=== PATIENT | male | born 1980 | race American Indian/Alaskan Native ===

== ENCOUNTER 2021-01-11 13:40 | Emergency (ER) | payer BC, OTHER ==
[2021-01-11 14:44] LABS: ANION GAP 11.8 mEq/L (7-13); CHLORIDE,CL 100 mmol/L (98-107); SODIUM,NA 139 mmol/L (136-145)
--- NOTE | 2021-01-11 14:48 | CR ---
EXAMINATION: Chest 1V Frontal SEX: Male AGE: 40 years CLINICAL HISTORY: 40-year-old male complaining of CHEST PAIN. INTERPRETATION: 1. Sternotomy wires. External compliance monitor leads. Oxygen cannula. 2. Prominent cardiac silhouette upper limits of normal and unchanged since 30 April 2019 exam. 3. No pulmonary vascular congestion, cephalization of flow, alveolar edema or dependent new pleural fluid accumulation. 4. No new lung mass or hilar lymphadenopathy. 5. No alveolar lobar consolidation or peripheral "groundglass" interstitial infiltrates. 6. No pneumothorax or pneumomediastinum. No free subdiaphragmatic air. CONCLUSION: No acute new cardiopulmonary abnormality since summer 2018.
[2021-01-11] MEDS ORDERED: GI Cocktail Oral Solution 30 ML PO ONE (14:49)
--- NOTE | 2021-01-11 15:31 | EDM.PDOC ---
<AundreaPrema - Last Filed: 01/11/21 15:17> ED HPI GENERAL MEDICAL PROBLEM - General Chief Complaint: Chest Pain Stated Complaint: CHEST PAINS Time Seen by Provider: 01/11/21 15:10 Source of Information: Reports: Patient History Limitations: Reports: No Limitations - History of Present Illness INITIAL COMMENTS - FREE TEXT/NARRATIVE: Patient is a 40 y.o. male who presents to the ED with c/o of intermittent chest pain for one day. The patient developed diffuse chest pain that radiates up into his neck and throat yesterday around 1300 when he was walking in and out of his house. The patient characterizes the chest pain as dull and aching and rates it around 2/10 at its worst. The patient states his chest pain resolved with rest, but is aggravated with movement. He denies any association with food. He has tried no therapeutic methods at home. He denies associated headache, dizziness, double vision, blurred vision, sore throat, difficulty swallowing, abdominal pain, or changes in bowel or urinary habits. He's had no fever, chills or fatigue. The patient received his first Covid Vaccine on 12/30/2020 but had only mild side effects which resolved after 24 hours. Onset: Other (yesterday ) Duration: Waxing/Waning Location: Reports: Chest Quality: Reports: Ache, Dull Severity: Mild Improves with: Reports: Rest Worsens with: Reports: Movement Context: Reports: Activity Associated Symptoms: Reports: No Other Symptoms - Related Data Allergies Allergy/AdvReac Type Severity Reaction Status Date / Time metformin Allergy Diarrhea Verified 01/11/21 14:27 Penicillins Allergy Anaphylactic Verified 01/11/21 14:27 Shock Home Meds: Home Meds Albuterol [Proventil HFA] 2 puff INH Q4H PRN 04/30/19 [History] Aspirin [Halfprin] 81 mg PO DAILY 04/30/19 [History] Fexofenadine [Hermelinda] 180 mg PO DAILY 04/30/19 [History] Insulin Detemir [Levemir Flextouch] 30 unit SQ ACBREAKFAST 04/30/19 [History] Lisinopril 30 mg PO DAILY 04/30/19 [History] Mometasone/Formoterol [Dulera 200 Mcg/5 Mcg Inhaler] 2 puff IH BID 04/30/19 [History] Montelukast Sodium 10 mg PO DAILY 04/30/19 [History] Multivit with Calcium,Iron,Min [Essential Daily] 1 tab PO DAILY 04/30/19 [History] Saxagliptin HCl [Onglyza] 10 mg PO DAILY 04/30/19 [History] Sotalol HCl [Sotalol] 160 mg PO DAILY 04/30/19 [History] Warfarin [Coumadin] 6 mg PO DAILY 04/30/19 [History] atorvaSTATin Calcium [Atorvastatin Calcium] 20 mg PO DAILY 04/30/19 [History] glipiZIDE [Glucotrol] 10 mg PO DAILY 04/30/19 [History] hydroCHLOROthiazide [Hydrochlorothiazide] 25 mg PO DAILY 04/30/19 [History] Past Medical History HEENT History: Reports: Allergic Rhinitis, Impaired Vision, Other (See Below) Other HEENT History: myopia, retinal lattice degeneration-left eye Cardiovascular History: Reports: Heart Valve Replacement, High Cholesterol, Hypertension Respiratory History: Reports: Asthma, Sleep Apnea Genitourinary History: Reports: None Musculoskeletal History: Reports: None Neurological History: Reports: None Psychiatric History: Reports: None Endocrine/Metabolic History: Reports: Diabetes, Type II Hematologic History: Reports: None Immunologic History: Reports: None Oncologic (Cancer) History: Reports: None Dermatologic History: Reports: None - Infectious Disease History Infectious Disease History: Reports: MRSA - Past Surgical History Head Surgeries/Procedures: Reports: None Cardiovascular Surgical History: Reports: Valve Replacement GI Surgical History: Reports: Hernia, Abdominal Social & Family History - Family History Family Medical History: No Pertinent Family History - Tobacco Use Tobacco Use Status *Q: Never Tobacco User - Caffeine Use Caffeine Use: Reports: Coffee, Soda, Tea - Recreational Drug Use Recreational Drug Use: No ED ROS GENERAL - Review of Systems Review Of Systems: Comprehensive ROS is negative, except as noted in HPI. ED EXAM, GENERAL - Physical Exam Exam: See Below Exam Limited By: No Limitations General Appearance: Alert, WD/WN, No Apparent Distress Eye Exam: Bilateral Eye: EOMI, Normal Inspection, PERRL Ears: Normal External Exam, Normal Canal, Hearing Grossly Normal, Normal TMs Nose: Normal Inspection, Normal Mucosa, No Blood Throat/Mouth: Normal Inspection, Normal Lips, Normal Teeth, Normal Gums, Normal Oropharynx, Normal Voice, No Airway Compromise Head: Atraumatic, Normocephalic Neck: Normal Inspection, Supple, Non-Tender, Full Range of Motion Respiratory/Chest: No Respiratory Distress, Lungs Clear, Normal Breath Sounds, No Accessory Muscle Use, Chest Non-Tender Cardiovascular: Normal Peripheral Pulses, Regular Rate, Rhythm, No Edema, No Gallop, No JVD, No Murmur, No Rub Peripheral Pulses: 3+: Radial (L), Radial (R) GI/Abdominal: Normal Bowel Sounds, Soft, Non-Tender, No Organomegaly, No Distention, No Abnormal Bruit, No Mass (Male) Exam: Deferred Rectal (Males) Exam: Deferred Back Exam: Normal Inspection, Full Range of Motion. No: CVA Tenderness (L), CVA Tenderness (R) Extremities: Normal Inspection, Normal Range of Motion, Non-Tender, Normal Capillary Refill, No Pedal Edema Neurological: Alert, Oriented, CN II-XII Intact, Normal Cognition, Normal Gait, Normal Reflexes, No Motor/Sensory Deficits Psychiatric: Normal Affect, Normal Mood Skin Exam: Warm, Dry, Intact, Normal Color, No Rash Lymphatic: No Adenopathy Departure - Departure Disposition: Home, Self-Care 01 Clinical Impression: Angina pectoris Instructions: Nonspecific Chest Pain, Adult, [id number], Angina, [id number] Forms: ED Department Discharge Additional Instructions: Call your power operator tomorrow and tell them you need to be seen [facility] Return to ER with any worsening of symptoms Sepsis Event Note (ED) - Evaluation Sepsis Screening Result: No Definite Risk <Kimberly Weller - Last Filed: 01/12/21 10:50> #1 Interpretation EKG Date: 01/11/21 Time: 14:06 Rhythm: NSR Rate (Beats/Min): 68 [place]: Normal P-Wave: Present QRS: Normal ST-T: Normal QT: Prolonged #2 Interpretation EKG Date: 01/11/21 Time: 17:49 Rhythm: NSR Rate (Beats/Min): 66 [place]: Normal P-Wave: Present QRS: Normal ST-T: Normal QT: Normal Comparison: No Change Course - Vital Signs Last Recorded V/S: Last Vital Signs Temp 97.9 F 01/11/21 14:22 Pulse 71 01/11/21 14:22 Resp 16 01/11/21 14:22 BP 125/80 01/11/21 14:22 Pulse Ox 97 01/11/21 14:22 - Orders/Labs/Meds Labs: Laboratory Tests 01/11/21 01/11/21 01/11/21 Range/Units 14:17 14:17 18:15 WBC 11.6 H (5.0-10.0) 10^3/uL RBC 4.80 (4.6-6.2) 10^6/uL Hgb 13.8 L (14.0-18.0) g/dL Hct 40.9 (40.0-54.0) % MCV 85.2 (80-100) fL MCH 28.8 (27.0-34.0) pg MCHC 33.7 (33.0-35.0) g/dL Plt Count 337 (150-450) 10^3/uL Neut % (Auto) 75.4 H (42.2-75.2) % Lymph % (Auto) 16.4 L (20.5-50.1) % [place] % (Auto) 6.8 (2-8) % Eos % (Auto) 1.1 (1.0-3.0) % Baso % (Auto) 0.3 (0.0-1.0) % Sodium 139 (136-145) mmol/L Potassium 3.8 (3.5-5.1) mmol/L Chloride 100 (98-107) mmol/L Carbon Dioxide 31 (21-32) mmol/L Anion Gap 11.8 (7-13) mEq/L BUN 13 (7-18) mg/dL Creatinine 0.97 (0.70-1.30) mg/dL Est Cr Clr Drug Dosing 101.23 mL/min Estimated GFR (MDRD) > 60 BUN/Creatinine Ratio 13.4 (No establ ref range) Glucose 165 H (74-99) mg/dL Calcium 8.8 (8.5-10.1) mg/dL Total Bilirubin 0.7 (0.2-1.0) mg/dL AST 23 (15-37) U/L ALT 46 (16-63) U/L Alkaline Phosphatase 129 H (46-116) U/L Troponin I < 0.017 < 0.017 (0.000-0.056) ng/mL Total Protein 7.7 (6.4-8.2) g/dL Albumin 3.9 (3.4-5.0) g/dL Globulin 3.8 Albumin/Globulin Ratio 1.0 Meds: Medications Discontinued Medications Generic Name Dose Route Start Last Admin Trade Name Adela PRN Reason Stop Dose Admin Al Hydroxide/Mg Hydroxide 30 ml 01/11/21 14:49 01/11/21 14:56 Gi Cocktail Oral Solution 30 Ml PO 01/11/21 14:50 30 ml ONETIME ONE Administration - Radiology Interpretation Free Text/Narrative:: Chest xray: No acute new cardiopulmonary abnormality since summer 2018 See rad report - Re-Assessments/Exams Free Text/Narrative Re-Assessment/Exam: 01/12/21 10:50 I personally performed or re-performed the physical examination and medical decision making. I have verified all student documentation or findings, including history, physical exam and/or medical decision making. Departure - Departure Time of Disposition: 18:50 Reason for Transfer *Q: Other Condition: Good
== END 2021-01-11 19:29 | disposition home or self-care (01) ==
LOC: DL.ED 13:40
DX: I20.9 Angina pectoris, unspecified (principal); I10 Essential (primary) hypertension; E78.00 Pure hypercholesterolemia, unspecified; J45.909 Unspecified asthma, uncomplicated; E11.9 Type 2 diabetes mellitus without complications; Z88.0 Allergy status to penicillin; Z88.8 Allergy status to other drugs, medicaments and biological substances; Z79.82 Long term (current) use of aspirin; Z79.4 Long term (current) use of insulin; Z79.01 Long term (current) use of anticoagulants; Z79.899 Other long term (current) drug therapy
CPT/HCPCS: 36415; 71045; 80053; 84484; 85025; 93005; 93010; 99284; 99285; A9270

== ENCOUNTER 2022-05-13 20:12 | Emergency (ER) | payer BC, OTHER ==
[2022-05-13] MEDS ORDERED: Sodium Chloride 0.9% 10 ML Syringe FLUSH PRN (21:08)
[2022-05-13 21:44] LABS: ANION GAP 13.4 mEq/L (7-13)
[2022-05-13] MEDS ORDERED: Potassium Chloride 10 MEQ Tab.ER PO ONE (23:22)
== END 2022-05-14 01:21 | disposition home or self-care (01) ==
LOC: DL.ED 20:12
DX: R00.0 Tachycardia, unspecified (principal); I11.9 Hypertensive heart disease without heart failure; I50.9 Heart failure, unspecified; E78.00 Pure hypercholesterolemia, unspecified; E11.9 Type 2 diabetes mellitus without complications; Z88.0 Allergy status to penicillin; Z79.82 Long term (current) use of aspirin; Z79.01 Long term (current) use of anticoagulants; Z79.899 Other long term (current) drug therapy
CPT/HCPCS: 36415; 71046; 80053; 83735; 84484; 85025; 85610; 85730; 93005; 93010; 99284; 99285; A9270

== ENCOUNTER 2023-08-14 19:24 | Emergency (ER) | payer BC, OTHER ==
[2023-08-14] MEDS ORDERED: Ketorolac 30 MG/ML SDV IM ONE (20:36)
== END 2023-08-14 21:06 | disposition home or self-care (01) ==
LOC: DL.ED 19:24
DX: M25.551 Pain in right hip (principal); E11.9 Type 2 diabetes mellitus without complications; I10 Essential (primary) hypertension; J45.909 Unspecified asthma, uncomplicated; Z88.0 Allergy status to penicillin
CPT/HCPCS: 73502; 96372; 99283; J1885